=== PATIENT | male | born 1955 | race Caucasian/White ===

== ENCOUNTER 2016-11-09 05:57 | Day surgery (SDC) | payer BC, MEDICAID ==
[2016-11-09] MEDS ORDERED: Dextrose 5%-Lactated Ringers 1,000 ML IV SCH (06:30)
[2016-11-09] MEDS ORDERED: Midazolam 1 MG/ML 2 ML SDV ONE (07:07)
[2016-11-09] MEDS ORDERED: fentaNYL 100 MCG/2 ML SDV ONE (07:07)
[2016-11-09] MEDS ORDERED: Propofol 200 MG/20 ML SDV ONE (07:07)
[2016-11-09 08:46] VITALS: BP 119/73
--- NOTE | 2016-11-10 03:57 | OR ---
DATE OF PROCEDURE: 11/09/2016 PREOPERATIVE DIAGNOSIS: Indications for screening colonoscopy. POSTOPERATIVE DIAGNOSIS: Normal screening colonoscopy. OPERATIVE PROCEDURE: Flexible colonoscopy. ANESTHESIA: IV sedation. INDICATION FOR PROCEDURE: A 61-year-old male presenting for a screening colonoscopy. He does have a family history of colon cancer, he is at the 5-year colonoscopy screening schedule. Plan is to do a colonoscopy with biopsy, and polypectomy as indicated. Potential risks including bleeding and perforation were discussed, and the patient wishes to proceed. DETAILS OF PROCEDURE: The patient was taken to the operating room and placed in the left lateral decubitus position. IV sedation was administered after which the digital rectal exam was performed and was unremarkable. Colonoscope was passed into the rectum with retroflexion revealing uncomplicated hemorrhoidal columns. The scope was then passed eventually to the cecum. The prep was quite good although there was a small amount of liquid stool present to that level, no abnormalities were noted, particularly no diverticula, no areas of colitis, no polyps, or other signs of neoplasia. The scope was then withdrawn. The above findings reconfirmed, and the patient taken to the recovery room in satisfactory condition. Given the patient's family history of colon cancer, he should have a repeat colonoscopy in 5 years. Yan Ascencio MD /[id number]
== END 2016-11-09 08:50 | disposition home or self-care (01) ==
LOC: JP.SDS 05:57
PROVIDERS: ATTEND Surgery
DX: Z12.11 Encounter for screening for malignant neoplasm of colon (principal); I12.9 Hypertensive chronic kidney disease with stage 1 through stage 4 chronic kidney disease, or unspecified chronic kidney disease; N18.9 Chronic kidney disease, unspecified; E03.9 Hypothyroidism, unspecified; E78.00 Pure hypercholesterolemia, unspecified; K21.9 Gastro-esophageal reflux disease without esophagitis
CPT/HCPCS: 45378; J2250; J2704; J3010; J7042

== ENCOUNTER 2021-10-13 07:57 | Day surgery (SDC) | payer MEDICARE, BC ==
[~2021-10-13 07:57] MED LIST: Midazolam 1 MG/ML 2 ML SDV ONE; Propofol 200 MG/20 ML SDV ONE; fentaNYL 100 MCG/2 ML SDV ONE
[2021-10-13] MEDS ORDERED: Dextrose 5%-Lactated Ringers 1,000 ML IV SCH (08:15)
[2021-10-13] MEDS ORDERED: Propofol 200 MG/20 ML SDV ONE (10:22)
[2021-10-13 11:38] VITALS: PULSE 48
[2021-10-13 11:39] VITALS: BP 147/75
== END 2021-10-13 11:41 | disposition home or self-care (01) ==
LOC: JP.SDS 07:57
PROVIDERS: ATTEND Surgery
DX: Z12.11 Encounter for screening for malignant neoplasm of colon (principal); D12.3 Benign neoplasm of transverse colon; K52.9 Noninfective gastroenteritis and colitis, unspecified; K21.9 Gastro-esophageal reflux disease without esophagitis; N18.9 Chronic kidney disease, unspecified; Z80.0 Family history of malignant neoplasm of digestive organs
CPT/HCPCS: 45380; 45385; 87046; 87493; 87899; 89055; J2250; J2704; J3010; J7121